=== PATIENT | male | born 1965 | race Caucasian/White ===

== ENCOUNTER 2017-07-30 23:56 | Inpatient (IN) | payer OTHER ==
[2017-07-30 23:56] VITALS: BMI 34.0
--- NOTE | 2017-07-31 00:20 | C.PDOC ---
History Of Present Illness Patient presents to the ER with a complaint of abdominal pain and nausea, associated with 2 episodes of blood tinged vomit. Patient admits to drinking ETOH today. Denies fever or chills. Time Seen by Provider: 07/31/17 00:20 Chief Complaint (Nursing): Abdominal Pain History Per: Patient History/Exam Limitations: no limitations Onset/Duration Of Symptoms: Hrs Current Symptoms Are (Timing): Still Present Context: Other (ETOH) Severity: Moderate Pain Scale Rating Of: 4 Location Of Pain/Discomfort: Epigastric Radiation Of Pain To:: None Quality Of Discomfort: Unable To Describe Associated Symptoms: Nausea, Vomiting (Blood tinged). denies: Fever, Chills Exacerbating Factors: None Alleviating Factors: None Recent travel outside of the [place]: No Additional History Per: Patient Past Medical History Reviewed: Historical Data, Nursing Documentation, Vital Signs Vital Signs: Last Vital Signs Temp 98.4 F 07/31/17 04:13 Pulse 122 H 07/31/17 05:11 Resp 24 07/31/17 05:11 BP 148/91 H 07/31/17 05:11 Pulse Ox 96 07/31/17 05:11 Surgical History: No Surg Hx Family History: States: No Known Family Hx - Social History Hx Alcohol Use: Yes Hx Substance Use: No - Immunization History Hx Tetanus Toxoid Vaccination: No Hx Influenza Vaccination: No Hx Pneumococcal Vaccination: No Review Of Systems Constitutional: Negative for: Fever, Chills ENT: Negative for: Throat Pain Cardiovascular: Negative for: Chest Pain, Palpitations Respiratory: Negative for: Cough, Shortness of Breath Gastrointestinal: Positive for: Nausea, Vomiting (Blood tinged), Abdominal Pain Genitourinary: Negative for: Dysuria Musculoskeletal: Negative for: Back Pain Skin: Negative for: Rash Neurological: Negative for: Weakness Psych: Negative for: Anxiety Physical Exam - Physical Exam Appears: Non-toxic Skin: Warm, Dry Head: Normacephalic Eye(s): bilateral: Normal Inspection Oral Mucosa: Moist Throat: No Erythema, No Exudate Neck: Trachea Midline, Supple Chest: Symmetrical, No Tenderness Cardiovascular: Rhythm Regular Respiratory: No Rales, No Rhonchi, No Wheezing Gastrointestinal/Abdominal: Soft, Tenderness (Mid epigastric), No Guarding, No Rebound Back: Normal Inspection Extremity: Normal ROM Extremity: Bilateral: Atraumatic Neurological/Psych: Oriented x3 Gait: Steady ED Course And Treatment - Laboratory Results Result Diagrams: 07/31/17 00:44 07/31/17 00:44 ECG: Interpreted By Me, Viewed By Me ECG Rhythm: Sinus Rhythm (100), Nonspecific Changes O2 Sat by Pulse Oximetry: 98 (Room air) Pulse Ox Interpretation: Normal Progress Note: Blood work, EKG, CXR, and urinalysis ordered. Protonix, zofran, and IV fluids administered. Disposition Discussed With Dr.: Enrique Calix Comment: accepted the pt on his service and took over the care at 5AM Counseled Patient/Family Regarding: Studies Performed, Diagnosis - Disposition Disposition: HOSPITALIZED Disposition Time: 00:20 Condition: FAIR Forms: [facility] (Bermudian) - POA Present On Arrival: Poor Glycemic Control - Clinical Impression Clinical Impression: Abdominal pain, Alcoholic gastritis, Vomiting, Nausea, Hematemesis - Scribe Statement The provider has reviewed the documentation as recorded by the Scribe Venkata Huffman All medical record entries made by the Scribe were at my direction and personally dictated by me. I have reviewed the chart and agree that the record accurately reflects my personal performance of the history, physical exam, medical decision making, and the department course for this patient. I have also personally directed, reviewed, and agree with the discharge instructions and disposition. Decision To Admit - Pt Status Changed To: Hospital Disposition Of: Observation - . Bed Request Type: Regular Admitting Physician: Enrique Calix Patient Diagnosis: Abdominal pain, Alcoholic gastritis, Vomiting, Nausea, Hematemesis
[2017-07-31] MEDS ORDERED: Sodium Chloride 0.9% 1,000 ML IV ONE ×2 (00:21→05:13)
[2017-07-31 00:49] LABS: BASO # 0.1 K/uL (0.0-0.2); EOS # 0.1 K/uL (0.0-0.7); EOS % 2.2 % (0.0-4.0); HEMOGLOBIN 16.2 g/dL (12.0-18.0); LYMPH # 2.6 K/uL (1.0-4.3); MEAN CELL VOLUME 83.7 fL (80.0-94.0); MEAN CORPUSCULAR HEMOGLOBIN 29.7 pg (27.0-31.0); MEAN CORPUSCULAR HGB CONC 35.5 g/dL (33.0-37.0); MONO # 0.6 K/uL (0.0-0.8); NEUT # 2.8 K/uL (1.8-7.0); NEUT % 45.8 % (50.0-75.0); NRBC % 0.3 % (0.0-2.0); RBC 5.46 Mil/uL (4.40-5.90); RED CELL DISTRIBUTION WIDTH 15.3 % (11.5-14.5); WHITE BLOOD COUNT 6.2 K/uL (4.8-10.8)
[2017-07-31 00:59] LABS: PROTHROMBIN TIME 10.9 SECONDS (9.7-12.2)
[2017-07-31 01:07] LABS: ALB/GLOB RATIO 1.5 (1.0-2.1); ALBUMIN 4.9 g/dL (3.5-5.0); ALT/SGPT 156 U/L (21-72); AST/SGOT 206 U/L (17-59); BLOOD UREA NITROGEN 10 mg/dL (9-20); CALCIUM 8.8 mg/dl (8.6-10.4); GFR AFRICAN-AMERICAN > 60; GFR NON-AFRICAN AMERICAN > 60; LIPASE 407 U/L (23-300)
[2017-07-31] MEDS ORDERED: Iodixanol 320 MG/ML 100 ML BOTTLE IV ONE (01:26)
[2017-07-31] MEDS ORDERED: Sodium Chloride 0.9% 1,000 ML ONE (05:06)
--- NOTE | 2017-07-31 05:51 | CP.PCM.HP ---
<Alpa Kelly - Last Filed: 07/31/17 06:47> History of Present Illness - History of Present Illness History of Present Illness: CC: "vomiting blood" HPI: 52 year old male with no past medical history presents to the ER after vomiting blood this morning. Patient states he started vomiting blood at 10am and 12pm Sunday and he was not able to come to the hospital earlier because he stated he did not have money. Patient states the blood was a small amount. He states he has also vomited 4x on Sunday but there was not any blood present. Patient states this is the first time this has happened. He states he has epigastric pain but he cannot describe the pain and denies radiation. Patient states the pain is currently an 8/10. Patient states he has fevers and chills. Patient also states he has vomited 2x since in the ER but states there was not blood present. Patient denies chest pain, shortness of breath, diarrhea, constipation or withdrawal secondary to alcohol withdrawal. Patient states he usually drinks about 2L of vodka and his last drink was on Sunday and states he drank 2 beers. 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 Patient is originally from [place]. Present on Admission - Present on Admission Any Indicators Present on Admission: No Review of Systems - Review of Systems Systems not reviewed;Unavailable: Intoxicated - Constitutional Constitutional: Chills, Fever. absent: Headache - EENT Eyes: absent: Blurred Vision - Cardiovascular Cardiovascular: absent: Chest Pain, Dyspnea - Respiratory Respiratory: absent: Dyspnea - Gastrointestinal Gastrointestinal: Abdominal Pain, Hematemesis, Nausea, Vomiting. absent: Constipation, Diarrhea - Genitourinary Genitourinary: absent: Dysuria - Neurological Neurological: absent: Dizziness, Headaches Past Patient History - Past Social History Smoking Status: Light Smoker < 10 Cigarettes Daily - PSYCHIATRIC Hx Substance Use: No - SURGICAL HISTORY Hx Surgeries: No - ANESTHESIA Hx Anesthesia: No Meds Allergies/Adverse Reactions: Allergies Allergy/AdvReac Type Severity Reaction Status Date / Time No Known Allergies Allergy Verified 07/31/17 00:11 Physical Exam - Constitutional Appears: Toxic - Head Exam Head Exam: ATRAUMATIC, NORMAL INSPECTION - Eye Exam Eye Exam: Conjunctival injection, EOMI, Normal appearance, PERRL Pupil Exam: NORMAL ACCOMODATION - ENT Exam ENT Exam: Mucous Membranes Dry - Respiratory Exam Respiratory Exam: Clear to Auscultation Bilateral, NORMAL BREATHING PATTERN - Cardiovascular Exam Cardiovascular Exam: Tachycardia, REGULAR RHYTHM, +S1, +S2. absent: JVD - GI/Abdominal Exam GI & Abdominal Exam: Normal Bowel Sounds, Soft, Tenderness (mild epigastric tenderness). absent: Distended, Firm, Guarding - Extremities Exam Extremities exam: Positive for: normal inspection, pedal pulses present. Negative for: pedal edema, tenderness - Neurological Exam Neurological exam: Alert, CN II-XII Intact, Oriented x3 - Expanded Neurological Exam Expanded Patient oriented to: person, place, time Cerebellar Function: Finger to Nose: Abnormal Left, Abnormal Right Coma Scale Eye Opening: SPONTANEOUS Coma Scale Motor Response: OBEYS COMMANDS - Psychiatric Exam Psychiatric exam: Normal Affect - Skin Skin Exam: Normal Color Additional comments: dirt underneath nail finger beds Results - Vital Signs Recent Vital Signs: Last Vital Signs Temp 98.4 F 07/31/17 04:13 Pulse 122 H 07/31/17 05:11 Resp 24 07/31/17 05:11 BP 148/91 H 07/31/17 05:11 Pulse Ox 98 07/31/17 05:18 - Labs Result Diagrams: 07/31/17 00:44 07/31/17 00:44 Labs: Laboratory Results - last 24 hr 07/31/17 07/31/17 07/31/17 00:44 00:44 00:44 WBC 6.2 D RBC 5.46 Hgb 16.2 Hct 45.7 MCV 83.7 MCH 29.7 MCHC 35.5 RDW 15.3 H Plt Count 152 D MPV 8.0 Neut % (Auto) 45.8 L Lymph % (Auto) 42.0 H Sac % (Auto) 9.0 Eos % (Auto) 2.2 Baso % (Auto) 1.0 Neut # (Auto) 2.8 Lymph # (Auto) 2.6 Sac # (Auto) 0.6 Eos # (Auto) 0.1 Baso # (Auto) 0.1 PT 10.9 INR 1.0 APTT 31 Sodium 140 Potassium 3.5 L Chloride 95 L Carbon Dioxide 27 Anion Gap 22 H BUN 10 Creatinine 0.8 Est GFR ( Amer) > 60 Est GFR (Non-Af Amer) > 60 Random Glucose 111 H Calcium 8.8 Total Bilirubin 1.0 AST 206 H ALT 156 H D Alkaline Phosphatase 113 Total Protein 8.2 Albumin 4.9 Globulin 3.3 Albumin/Globulin Ratio 1.5 Lipase 407 H Gastric Occult Blood Alcohol, Quantitative 265 H Blood Type Antibody Screen 07/31/17 07/31/17 00:57 05:15 WBC RBC Hgb Hct MCV MCH MCHC RDW Plt Count MPV Neut % (Auto) Lymph % (Auto) Sac % (Auto) Eos % (Auto) Baso % (Auto) Neut # (Auto) Lymph # (Auto) Sac # (Auto) Eos # (Auto) Baso # (Auto) PT INR APTT Sodium Potassium Chloride Carbon Dioxide Anion Gap BUN Creatinine Est GFR ( Amer) Est GFR (Non-Af Amer) Random Glucose Calcium Total Bilirubin AST ALT Alkaline Phosphatase Total Protein Albumin Globulin Albumin/Globulin Ratio Lipase Gastric Occult Blood Negative Alcohol, Quantitative Blood Type O POSITIVE Antibody Screen Negative Assessment & Plan - Assessment and Plan (Free Text) Assessment: Hematamesis - secondary to gastritis secondary to alcohol abuse - CT abd/pelvis: Liver there is diffuse decrease in hepatic parenchymal density , consistent with fatty infiltration; no acute findings. - Protonix 40mg IV q12h - NPO - stool occult blood negative - GI Consult: Dr. Potts --> help appreciated Alcohol Abuse - [facility] protocol - Ativan 2mg q6 linnea - Ativan 1mg q2prn - LR with multivitamin/Folate/Thiamine @120cc/hr - Alcohol Serum 265 - f/u UDS Elevated Liver Enzymes - secondary to alcohol abuse - Continue to monitor Prophylaxis - SCDs - Protonix 40mg q12h - NPO - VTE contraindication Case discussed with Dr. Fifi Kelly PGY-2 <Enrique Calix P - Last Filed: 07/31/17 07:08> Results - Vital Signs Recent Vital Signs: Last Vital Signs Temp 97.5 F L 07/31/17 06:25 Pulse 95 H 07/31/17 06:25 Resp 20 07/31/17 06:25 BP 158/91 H 07/31/17 06:25 Pulse Ox 97 07/31/17 06:25 - Labs Result Diagrams: 07/31/17 00:44 07/31/17 00:44 Labs: Laboratory Results - last 24 hr 07/31/17 07/31/17 07/31/17 00:44 00:44 00:44 WBC 6.2 D RBC 5.46 Hgb 16.2 Hct 45.7 MCV 83.7 MCH 29.7 MCHC 35.5 RDW 15.3 H Plt Count 152 D MPV 8.0 Neut % (Auto) 45.8 L Lymph % (Auto) 42.0 H Sac % (Auto) 9.0 Eos % (Auto) 2.2 Baso % (Auto) 1.0 Neut # (Auto) 2.8 Lymph # (Auto) 2.6 Sac # (Auto) 0.6 Eos # (Auto) 0.1 Baso # (Auto) 0.1 PT 10.9 INR 1.0 APTT 31 Sodium 140 Potassium 3.5 L Chloride 95 L Carbon Dioxide 27 Anion Gap 22 H BUN 10 Creatinine 0.8 Est GFR ( Amer) > 60 Est GFR (Non-Af Amer) > 60 Random Glucose 111 H Calcium 8.8 Total Bilirubin 1.0 AST 206 H ALT 156 H D Alkaline Phosphatase 113 Total Protein 8.2 Albumin 4.9 Globulin 3.3 Albumin/Globulin Ratio 1.5 Lipase 407 H Gastric Occult Blood Alcohol, Quantitative 265 H Blood Type Antibody Screen 07/31/17 07/31/17 00:57 05:15 WBC RBC Hgb Hct MCV MCH MCHC RDW Plt Count MPV Neut % (Auto) Lymph % (Auto) Sac % (Auto) Eos % (Auto) Baso % (Auto) Neut # (Auto) Lymph # (Auto) Sac # (Auto) Eos # (Auto) Baso # (Auto) PT INR APTT Sodium Potassium Chloride Carbon Dioxide Anion Gap BUN Creatinine Est GFR ( Amer) Est GFR (Non-Af Amer) Random Glucose Calcium Total Bilirubin AST ALT Alkaline Phosphatase Total Protein Albumin Globulin Albumin/Globulin Ratio Lipase Gastric Occult Blood Negative Alcohol, Quantitative Blood Type O POSITIVE Antibody Screen Negative Attending/Attestation - Attestation I have personally seen and examined this patient.: Yes I have fully participated in the care of the patient.: Yes I have reviewed all pertinent clinical information: Yes Notes (Text): 07/31/17 06:57 Alcoholic gastritis, hepatitis, ? early pancreatitis, possible resolving, secondary retching and streaks of blood in the vomit. Alcoholism and high risk of withdrawal. Plan NPO IVF MVT, FA, thiamine Scheduled and prn iv ativan Hepatitis panel Counselled about alcohol and smoking cessation. See orders for detail.
[2017-07-31] MEDS ORDERED: MULTIVITAMIN IV SCH (06:15)
[2017-07-31] MEDS ORDERED: FOLIC ACID IV SCH (06:15)
[2017-07-31] MEDS ORDERED: LACTATED RINGER S IV SCH (06:15)
[2017-07-31] MEDS ORDERED: THIAMINE IV SCH (06:15)
--- NOTE | 2017-07-31 09:33 | CP.PCM.PN ---
<Chani Patrick V - Last Filed: 07/31/17 13:44> Objective - Vital Signs/Intake and Output Vital Signs (last 24 hours): Temp Pulse Resp BP Pulse Ox 98.1 F 92 H 20 156/97 H 98 07/31/17 07:05 07/31/17 07:05 07/31/17 07:05 07/31/17 07:05 07/31/17 07:05 - Medications Medications: Current Medications Gabapentin (Neurontin) 300 mg PO BID [facility] Last Admin: 07/31/17 12:30 Dose: 300 mg Multivitamins/Vitamin C 10 ml/Thiamine HCl 100 mg/ Folic Acid 1 mg/ Lactated Ringer's 1,011.2 mls @ 120 mls/hr IV .Q8H26M [facility] Last Admin: 07/31/17 06:39 Dose: 120 mls/hr Lorazepam (Ativan) 1 mg IVP Q4H PRN PRN Reason: Symptoms of alcohol withdrawl Lorazepam (Ativan) 1 mg IVP Q6H [facility] PRN Reason: Taper Stop: 08/04/17 11:59 Last Admin: 07/31/17 12:30 Dose: 1 mg Ondansetron HCl (Zofran Inj) 4 mg IVP Q6 PRN PRN Reason: Nausea/Vomiting Last Admin: 07/31/17 12:30 Dose: 4 mg Pantoprazole Sodium (Protonix Inj) 40 mg IVP Q12H [facility] Last Admin: 07/31/17 06:38 Dose: 40 mg Pneumococcal Polyvalent Vaccine (Pneumovax 23 Vaccine) 0.5 ml IM .ONCE ONE Stop: 08/03/17 14:01 Trazodone HCl (Desyrel) 100 mg PO [facility] - Labs Labs: 07/31/17 10:48 07/31/17 10:48 PT 10.9 SECONDS (9.7-12.2) 07/31/17 00:44 INR 1.0 07/31/17 00:44 APTT 31 SECONDS (21-34) 07/31/17 00:44 Attending/Attestation - Attestation I have personally seen and examined this patient.: Yes I have fully participated in the care of the patient.: Yes I have reviewed all pertinent clinical information, including history, physical exam and plan: Yes Notes (Text): Patient seen, examined and case discussed with day-time resident. Patient reports he drinks 2 large vodkas a day. Last drink yesterday. Patient reports visual hallucinations. Patient reports sometimes he throws up blood and reports his bowel movements are yellow. He reports has month they were dark last month. patient denies history of liver cirrhosis though I suspected he does have alcoholic liver disease. I spoke with GI, no plans for intervention at this time. Recommends to repeat CBC and when patient more alert then advance to clear diet. Assessment/Plan 1) Alcohol Abuse Alcohol Withdrawal Assessment/Plan * Psychiatry (Dr. Martinez) on board-->help appreciated * [facility] protocol * Ativan 2mg IVP q6 linnea * Ativan 1mg q2prn * LR 125cc/hr with banana bag supplemented * Alcohol Serum 265 * Neurotonin 300mg PO BID * Trazodone 100mg PO HS 2) Transaminitis Assessment/Plan * GI (Dr. Potts) on board-->help appreciated * Mild blood tinged emesis likely due to recurrent wretching and bilious vomiting, gastritis, MWT, doubt bleeding ulcer or portal hypertension. Bleeding appears to be self limited and has stopped. IV Protonix q12h. * Monitor CBC. * Will defer EGD at this time in absence of hemodynamically significant bleeding or drop in H/H. Observe. * Abdominal US ordered * CT abdomen/pelvis IV only (07/31/17): no acute findings related to/accounting for clinical presentation; Liver: hepatic steatosis. No focal masses. No intrahepatic bile duct dilatation or perihepatic ascites * Hepatitis panel: negative * Downtrending * Ativan 2mg IVP q6 linnea * Ativan 1mg q2prn 3) Hypokalemia Assessment/Plan * Replete 4) Suspect GI Bleed Assessment/Plan * protonix 40mg IV Q12H * Monitor H/H * No plans for GI intervention at this time 5) Prophylaxis * SCDs * Protonix 40mg q12h * NPO * VTE contraindication suspected GI bleed <Dewey Sparrow - Last Filed: 07/31/17 17:34> Subjective - Date & Time of Evaluation Date of Evaluation: 07/31/17 Time of Evaluation: 09:18 - Subjective Subjective: PGY-[address] Patrick. No acute events noted overnight. Patient stated he felt somewhat better. Was seen comfortable watching the [id number] match on tv. Stated he was seeing halos around lights. Denied chest pain, fevers, chills, vomiting. Admitted to mild abdominal pain, right sided. Objective - Vital Signs/Intake and Output Vital Signs (last 24 hours): Temp Pulse Resp BP Pulse Ox 98.1 F 92 H 20 156/97 H 98 07/31/17 07:05 07/31/17 07:05 07/31/17 07:05 07/31/17 07:05 07/31/17 07:05 - Medications Medications: Current Medications Multivitamins/Vitamin C 10 ml/Thiamine HCl 100 mg/ Folic Acid 1 mg/ Lactated Ringer's 1,011.2 mls @ 120 mls/hr IV .Q8H26M [facility] Last Admin: 07/31/17 06:39 Dose: 120 mls/hr Lorazepam (Ativan) 2 mg IVP Q6H [facility] Last Admin: 07/31/17 06:39 Dose: 2 mg Lorazepam (Ativan) 1 mg IVP Q2H PRN PRN Reason: Symptoms of alcohol withdrawl Ondansetron HCl (Zofran Inj) 4 mg IVP Q6 PRN PRN Reason: Nausea/Vomiting Last Admin: 07/31/17 06:38 Dose: 4 mg Pantoprazole Sodium (Protonix Inj) 40 mg IVP Q12H [facility] Last Admin: 07/31/17 06:38 Dose: 40 mg Pneumococcal Polyvalent Vaccine (Pneumovax 23 Vaccine) 0.5 ml IM .ONCE ONE Stop: 08/03/17 14:01 - Labs Labs: 07/31/17 00:44 07/31/17 00:44 PT 10.9 SECONDS (9.7-12.2) 07/31/17 00:44 INR 1.0 07/31/17 00:44 APTT 31 SECONDS (21-34) 07/31/17 00:44 - Additional Findings Additional findings: - Constitutional Appears: Toxic - Head Exam Head Exam: ATRAUMATIC, NORMAL INSPECTION - Eye Exam Eye Exam: Conjunctival injection, EOMI, Normal appearance, PERRL Pupil Exam: NORMAL ACCOMODATION - ENT Exam ENT Exam: Mucous Membranes Dry - Respiratory Exam Respiratory Exam: Clear to Auscultation Bilateral, NORMAL BREATHING PATTERN - Cardiovascular Exam Cardiovascular Exam: Tachycardia, REGULAR RHYTHM, +S1, +S2. absent: JVD - GI/Abdominal Exam GI & Abdominal Exam: Normal Bowel Sounds, Soft, Tenderness (mild epigastric tenderness). absent: Distended, Firm, Guarding - Extremities Exam Extremities exam: Positive for: normal inspection, pedal pulses present. Negative for: pedal edema, tenderness - Neurological Exam Neurological exam: Alert, CN II-XII Intact, Oriented x3 - Expanded Neurological Exam Expanded Patient oriented to: person, place, time Cerebellar Function: Finger to Nose: Abnormal Left, Abnormal Right Coma Scale Eye Opening: SPONTANEOUS Coma Scale Motor Response: OBEYS COMMANDS - Psychiatric Exam Psychiatric exam: Normal Affect - Skin Skin Exam: Normal Color Additional comments: dirt underneath nail finger beds Assessment and Plan - Assessment and Plan (Free Text) Assessment: 1) Alcohol Abuse Alcohol Withdrawal Assessment/Plan * Psychiatry (Dr. Martinez) on board-->help appreciated * [facility] protocol * Ativan 2mg IVP q6 linnea * Ativan 1mg q2prn * LR 125cc/hr with banana bag supplemented * Alcohol Serum 265 * Neurotonin 300mg PO BID * Trazodone 100mg PO HS 2) Transaminitis Assessment/Plan * GI (Dr. Potts) on board-->help appreciated * Mild blood tinged emesis likely due to recurrent wretching and bilious vomiting, gastritis, MWT, doubt bleeding ulcer or portal hypertension. Bleeding appears to be self limited and has stopped. IV Protonix q12h. * Monitor CBC. * Will defer EGD at this time in absence of hemodynamically significant bleeding or drop in H/H. Observe. * Abdominal US ordered * CT abdomen/pelvis IV only (07/31/17): no acute findings related to/accounting for clinical presentation; Liver: hepatic steatosis. No focal masses. No intrahepatic bile duct dilatation or perihepatic ascites * Hepatitis panel: negative * Downtrending * Ativan 2mg IVP q6 linnea * Ativan 1mg q2prn 3) Hypokalemia Assessment/Plan * Replete 4) Suspect GI Bleed Assessment/Plan * protonix 40mg IV Q12H * Monitor H/H * No plans for GI intervention at this time 5) Prophylaxis * SCDs * Protonix 40mg q12h * NPO * VTE contraindication suspected GI bleed Case discussed with Dr. Celina Sparrow PGY-2
--- NOTE | 2017-07-31 09:40 | CP.PCM.CON ---
History of Present Illness - History of Present Illness History of Present Illness: 54 yo [place] male admitted with alcohol intoxication (EtoH level >200), epigastric pain and intractable vomiting on day of admission. Patient reports the emesis was blood tinged as well. Admits to 2 liters of vodka ingestion daily for the past 20 years. No prior medical history. Never told he has liver disease, IVDA, hepatitis of other problems. No melena. Asked to see for hematemesis. Hgb=16. Review of Systems - Review of Systems Systems not reviewed;Unavailable: Intoxicated, Language Barrier Past Patient History - Past Social History Smoking Status: Light Smoker < 10 Cigarettes Daily Alcohol: > 2 Drinks/Day Drugs: Denies Home Situation {Lives}: With Family - CARDIAC Hx Cardiac Disorders: No - PULMONARY Hx Respiratory Disorders: No - NEUROLOGICAL Hx Neurological Disorder: No - RENAL Hx Chronic Kidney Disease: No - ENDOCRINE/METABOLIC Hx Endocrine Disorders: No - HEMATOLOGICAL/ONCOLOGICAL Hx Blood Disorders: No - MUSCULOSKELETAL/RHEUMATOLOGICAL Hx Musculoskeletal Disorders: No - GASTROINTESTINAL Hx Gastrointestinal Disorders: No Hx Bowel Surgery: No Hx Clostridium Difficile: No Hx Colitis: No Hx Colostomy: No Hx Constipation: No Hx Crohn's Disease: No Hx Diarrhea: No Hx Diverticulitis: No Hx Esophageal Varices: No Hx Fatty Liver Disease: No Hx Gall Bladder Disease: No Hx Gastritis: No Hx Gastroesophageal Reflux: No Hx Hemorrhoids: No Hx Ileostomy: No Hx Irritable Bowel: No Hx Liver Failure: No Hx Nausea: No Hx Pancreatitis: No HX Swallowing Problems: No Hx Ulcer: No Hx Vomiting: Yes - PSYCHIATRIC Hx Substance Use: Yes (alcohol abuse) - SURGICAL HISTORY Hx Surgeries: No - ANESTHESIA Hx Anesthesia: No Meds Allergies/Adverse Reactions: Allergies Allergy/AdvReac Type Severity Reaction Status Date / Time No Known Allergies Allergy Verified 07/31/17 00:11 - Medications Medications: Current Medications Multivitamins/Vitamin C 10 ml/Thiamine HCl 100 mg/ Folic Acid 1 mg/ Lactated Ringer's 1,011.2 mls @ 120 mls/hr IV .Q8H26M [facility] Last Admin: 07/31/17 06:39 Dose: 120 mls/hr Lorazepam (Ativan) 2 mg IVP Q6H [facility] Last Admin: 07/31/17 06:39 Dose: 2 mg Lorazepam (Ativan) 1 mg IVP Q2H PRN PRN Reason: Symptoms of alcohol withdrawl Ondansetron HCl (Zofran Inj) 4 mg IVP Q6 PRN PRN Reason: Nausea/Vomiting Last Admin: 07/31/17 06:38 Dose: 4 mg Pantoprazole Sodium (Protonix Inj) 40 mg IVP Q12H [facility] Last Admin: 07/31/17 06:38 Dose: 40 mg Pneumococcal Polyvalent Vaccine (Pneumovax 23 Vaccine) 0.5 ml IM .ONCE ONE Stop: 08/03/17 14:01 Physical Exam - Constitutional Appears: No Acute Distress, Confused - Head Exam Head Exam: ATRAUMATIC, NORMOCEPHALIC - Eye Exam Eye Exam: EOMI, PERRL. absent: Scleral icterus - Respiratory Exam Respiratory Exam: NORMAL BREATHING PATTERN - Cardiovascular Exam Cardiovascular Exam: REGULAR RHYTHM - GI/Abdominal Exam GI & Abdominal Exam: Normal Bowel Sounds, Organomegaly, Soft. absent: Tenderness - Rectal Exam Rectal Exam: Deferred - Extremities Exam Extremities exam: Positive for: normal inspection - Neurological Exam Neurological exam: Alert Results - Vital Signs Recent Vital Signs: Last Vital Signs Temp 98.1 F 07/31/17 07:05 Pulse 92 H 07/31/17 07:05 Resp 20 07/31/17 07:05 BP 156/97 H 07/31/17 07:05 Pulse Ox 98 07/31/17 07:05 - Labs Result Diagrams: 07/31/17 00:44 07/31/17 00:44 Labs: Laboratory Results - last 24 hr 07/31/17 07/31/17 07/31/17 00:44 00:44 00:44 WBC 6.2 D RBC 5.46 Hgb 16.2 Hct 45.7 MCV 83.7 MCH 29.7 MCHC 35.5 RDW 15.3 H Plt Count 152 D MPV 8.0 Neut % (Auto) 45.8 L Lymph % (Auto) 42.0 H Monona % (Auto) 9.0 Eos % (Auto) 2.2 Baso % (Auto) 1.0 Neut # (Auto) 2.8 Lymph # (Auto) 2.6 Monona # (Auto) 0.6 Eos # (Auto) 0.1 Baso # (Auto) 0.1 PT 10.9 INR 1.0 APTT 31 Sodium 140 Potassium 3.5 L Chloride 95 L Carbon Dioxide 27 Anion Gap 22 H BUN 10 Creatinine 0.8 Est GFR ( Amer) > 60 Est GFR (Non-Af Amer) > 60 Random Glucose 111 H Calcium 8.8 Total Bilirubin 1.0 AST 206 H ALT 156 H D Alkaline Phosphatase 113 Total Protein 8.2 Albumin 4.9 Globulin 3.3 Albumin/Globulin Ratio 1.5 Lipase 407 H Gastric Occult Blood Alcohol, Quantitative 265 H Blood Type Antibody Screen 07/31/17 07/31/17 00:57 05:15 WBC RBC Hgb Hct MCV MCH MCHC RDW Plt Count MPV Neut % (Auto) Lymph % (Auto) Monona % (Auto) Eos % (Auto) Baso % (Auto) Neut # (Auto) Lymph # (Auto) Monona # (Auto) Eos # (Auto) Baso # (Auto) PT INR APTT Sodium Potassium Chloride Carbon Dioxide Anion Gap BUN Creatinine Est GFR ( Amer) Est GFR (Non-Af Amer) Random Glucose Calcium Total Bilirubin AST ALT Alkaline Phosphatase Total Protein Albumin Globulin Albumin/Globulin Ratio Lipase Gastric Occult Blood Negative Alcohol, Quantitative Blood Type O POSITIVE Antibody Screen Negative Assessment & Plan (1) Alcohol abuse Assessment and Plan: Needs psychiatric evaluation and detox protocol. Monitor for DT's. Status: Acute (2) Alcoholic fatty liver Assessment and Plan: Likely due to alcohol abuse fci. Status: Acute (3) Hematemesis Assessment and Plan: Mild blood tinged emesis likely due to recurrent wretching and bilious vomiting , gastritis, MWT, doubt bleeding ulcer or portal hypertension. Bleeding appears to be self limited and has stopped. IV Protonix q12h. Monitor CBC. Will defer EGD at this time in absence of hemodynamically significant bleeding or drop in H/H. Observe. Status: Acute (4) Abnormal transaminases Assessment and Plan: likely due to alcoholic fatty liver/alcoholic hepatitis. r/o underlying viral disease of other causes of CLD. Serologies ordered. Status: Acute
--- NOTE | 2017-07-31 10:55 | CT ---
PROCEDURE: CT Abdomen and Pelvis with contrast HISTORY: Hematemesis. COMPARISON: None. TECHNIQUE: Contrast dose: Visipaque 321 100 mL Radiation dose: Total exam DLP = 589.98 mGy-cm. This CT exam was performed using one or more of the following dose reduction techniques: Automated exposure control, adjustment of the mA and/or kV according to patient size, and/or use of iterative reconstruction technique. FINDINGS: LOWER THORAX: Unremarkable. LIVER: Hepatic steatosis. No focal masses. No intrahepatic bile duct dilatation or perihepatic ascites. GALLBLADDER AND BILE DUCTS: Unremarkable. PANCREAS: Unremarkable. No gross lesion or ductal dilatation. SPLEEN: Unremarkable. ADRENALS: Unremarkable. No mass. KIDNEYS AND URETERS: Bilateral nonobstructing renal calculi common non larger than 5 mm. VASCULATURE: Unremarkable. No aortic aneurysm. BOWEL: Unremarkable. No obstruction. No gross mural thickening. APPENDIX: Normal appendix. PERITONEUM: Unremarkable. No free fluid. No free air. LYMPH NODES: Unremarkable. No enlarged lymph nodes. BLADDER: Unremarkable. REPRODUCTIVE: Unremarkable. BONES: No acute fracture. OTHER FINDINGS: None. IMPRESSION: No acute findings related to/accounting for the clinical presentation. Additional benign and/or incidental findings described above. Concordant results (preliminary interpretation) provided by [employer]. Procedure Completed: 03:10 Preliminary ([facility]Rad) Report: Dictated and Authenticated: 04:31. Final Interpretation: 10:59
--- NOTE | 2017-07-31 10:56 | RAD ---
PROCEDURE: CHEST RADIOGRAPH, 1 VIEW HISTORY: Abdominal pain. Vomiting. COMPARISON: None available. FINDINGS: LUNGS: Clear. PLEURA: No pneumothorax or pleural fluid seen. CARDIOVASCULAR: No radiographic findings to suggest acute or significant cardiovascular disease. OSSEOUS STRUCTURES: No significant abnormalities. VISUALIZED UPPER ABDOMEN: Normal. OTHER FINDINGS: None. IMPRESSION: No active disease.
[2017-07-31 10:57] LABS: BASO % 0.6 % (0.0-2.0); EOS # 0.2 K/uL (0.0-0.7); EOS % 3.5 % (0.0-4.0); HEMOGLOBIN 15.2 g/dL (12.0-18.0); LYMPH % 31.2 % (20.0-40.0); MEAN CELL VOLUME 85.6 fL (80.0-94.0); MEAN CORPUSCULAR HEMOGLOBIN 29.5 pg (27.0-31.0); MEAN CORPUSCULAR HGB CONC 34.5 g/dL (33.0-37.0); MEAN PLATELET VOLUME 8.5 fL (7.2-11.7); MONO # 0.4 K/uL (0.0-0.8); MONO % 6.8 % (0.0-10.0); NEUT # 3.7 K/uL (1.8-7.0); NEUT % 57.9 % (50.0-75.0); NRBC % 0.1 % (0.0-2.0); RBC 5.15 Mil/uL (4.40-5.90); RED CELL DISTRIBUTION WIDTH 15.2 % (11.5-14.5); WHITE BLOOD COUNT 6.4 K/uL (4.8-10.8)
[2017-07-31 11:10] LABS: IRON 173 ug/dL (49-181)
[2017-07-31 11:17] LABS: ALB/GLOB RATIO 1.6 (1.0-2.1); ALBUMIN 4.7 g/dL (3.5-5.0); ALT/SGPT 147 U/L (21-72); AST/SGOT 191 U/L (17-59); BLOOD UREA NITROGEN 7 mg/dL (9-20); CALCIUM 8.5 mg/dl (8.6-10.4); GFR AFRICAN-AMERICAN > 60; GFR NON-AFRICAN AMERICAN > 60
[2017-07-31 11:20] LABS: % IRON SATURATION 52 (20-55); TOTAL IRON BINDING CAPACITY 332 ug/dL (250-450)
[2017-07-31 11:43] LABS: HEPATITIS B SURFACE AG Negative (NEGATIVE)
[2017-07-31 11:49] LABS: HEPATITIS A IGM NEGATIVE (NEGATIVE); HEPATITIS B CORE AB NEGATIVE (NEGATIVE)
--- NOTE | 2017-07-31 11:54 | PCM.PSYCH ---
Initial Psychiatric Evaluation - Initial Psychiatric Evaluation Type of Admission: Voluntary Legal Status: Capacity Chief Complaint (in patient's own words): "Alcohol" History of Present Illness and Precipitating Events: The patient is seen, chart reviewed and case discussed. Consultation was requested for his alcohol use. All my transition used for the interview. 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 He admits to having the 7 day binge for about 1 L of alcohol every day. However , he has a history of alcohol abuse for 30 years. Interestingly enough, he has never been to detox or rehabilitation in the past. He has withdrawal symptoms currently. No psych or other drug use history. Past psych history: Denies Medical history: He is admitted with GI bleed. Family psych history: Brother was also an alcoholic he states he Current Medications: Active Medications Generic Name Dose Route Start Last Admin Trade Name Freq PRN Reason Stop Dose Admin Multivitamins/Vitamin C 10 ml/ 1,011.2 mls @ 120 mls/hr 07/31/17 06:15 06:39 Thiamine HCl 100 mg/ Folic IV 120 mls/hr Acid 1 mg/ Lactated Ringer's .Q8H26M JORGE Administration Lorazepam 2 mg 07/31/17 06:30 07/31/17 06:39 Ativan IVP 2 mg Q6H JORGE Administration Lorazepam 1 mg 07/31/17 06:24 Ativan IVP Q2H PRN Symptoms of alcohol withdrawl Ondansetron HCl 4 mg 07/31/17 05:40 07/31/17 06:38 Zofran Inj IVP 4 mg Q6 PRN Administration Nausea/Vomiting Pantoprazole Sodium 40 mg 07/31/17 05:45 07/31/17 06:38 Protonix Inj IVP 40 mg Q12H JORGE Administration Pneumococcal Polyvalent Vaccine 0.5 ml 08/03/17 14:00 Pneumovax 23 Vaccine IM 08/03/17 14:01 .ONCE ONE Past Psychiatric History - Past Psychiatric History Previous Treatment History: None Pertinent Medical Hx (Current Medical&Sleep Prob, Allergies): Allergies Allergy/AdvReac Type Severity Reaction Status Date / Time No Known Allergies Allergy Verified 07/31/17 00:11 No Known Home Med 07/31/17 Review of Systems - Psychiatric Psychiatric: Abnormal Sleep Pattern, Anxiety. absent: Hallucinations, Homicidal Ideation, Hopelessness, Paranoia, Suicidal Ideation Mental Status Examination - Personal Presentation Personal Presentation: Looks stated age - Affect Affect: Constricted - Motor Activity Motor Activity: Calm - Reliability in Providing Information Reliability in Providing Information: Good - Speech Speech: Organized - Mood Mood: Anxious - Formal Thought Process Formal Thought Process: No Impairment - Cognitive Functions Orientation: Person, Place, Situation, Time Sensorium: Alert Attention/Concentration: Easily distracted Estimate of Intelligence: Average Judgement: Intact, as evidence by: Insight regarding need for hospitalization Memory: Recent intact, as evidence by: Ability to recall events of the day, Remote intact, as evidenced by: Abilit to recall sig. life events - Risk Risk: Withdrawal, Diminished functioning - Strength & Assets Inventory Strength & Assets Inventory: Cooperative - Limitations Limitations: Other DSM 5 DX - DSM 5 DSM 5 Diagnosis: Alcohol withdrawal Alcohol use disorder, severe - Recommended/Plan of Treatment Treatment Recommendations and Plan of Treatment: Taper with Ativan Trazodone for insomnia Gabapentin for augmentation if needed As needed medications All risks, benefits and alternatives of the meds discussed, and the pt agreed and understood. Supportive therapy and psychoeducation [place] for abstinence Encourage MAT Refer to rehab or IOP, and self-help groups Smoking cessation with [place] Nicotine patch if needed 34 min
[2017-07-31 12:00] LABS: HEPATITIS C ANTIBODY NEGATIVE (NEGATIVE)
--- NOTE | 2017-07-31 16:04 | US ---
HISTORY: check liver for cirrhosis COMPARISON: None. TECHNIQUE: Sonographic evaluation of the abdomen. FINDINGS: LIVER: Measures 17.2 cm. Increased echogenicity of the liver parenchyma. No mass. No intrahepatic bile duct dilatation. GALLBLADDER: Distended but otherwise unremarkable appearing gallbladder. No reported sonographic Hugo sign by technologist. No cholelithiasis or mural thickening. No pericholecystic fluid collection evident. COMMON BILE DUCT: Measures 2.0 mm. No stones. No dilatation. PANCREAS: Unremarkable as visualized. No mass. No ductal dilatation. RIGHT KIDNEY: Measures 12.6cm. No obstructive uropathy is appreciated however of prominent area perisinus fat is questioned versus potential 6 mm calculus with no shadowing at the midpole region. The former is favored over the latter. Corticomedullary differentiation is poor which could be a function of body habitus. No perinephric fluid collection or cystic or solid parenchymal mass appreciable. LEFT KIDNEY: Measures 12.0cm. No obstructive uropathy, urolithiasis or cyst or solid parenchymal mass. No perinephric fluid collection. Corticomedullary differentiation is poor. SPLEEN: Normal in size and contour. No mass. AORTA: No aneurysmal dilatation. IVC: Unremarkable. OTHER FINDINGS: None. IMPRESSION: 1. Hepatic steatosis. 2. Distended but otherwise unremarkable appearing gallbladder as discussed above. 3. Nonspecific loss of corticomedullary differentiation could be a function of body habitus though intrinsic medical renal disease is not excluded.
[2017-08-01] MEDS ORDERED: MULTIVITAMIN IV SCH (06:30)
[2017-08-01] MEDS ORDERED: FOLIC ACID IV SCH (06:30)
[2017-08-01] MEDS ORDERED: LACTATED RINGER S IV SCH (06:30)
[2017-08-01] MEDS ORDERED: THIAMINE IV SCH (06:30)
[2017-08-01 06:45] LABS: ALB/GLOB RATIO 1.5 (1.0-2.1); ALBUMIN 4.3 g/dL (3.5-5.0); ALT/SGPT 121 U/L (21-72); AST/SGOT 123 U/L (17-59); BILIRUBIN,DIRECT 0.5 mg/dL (0.0-0.4); BLOOD UREA NITROGEN 11 mg/dL (9-20); GFR AFRICAN-AMERICAN > 60; GFR NON-AFRICAN AMERICAN > 60
[2017-08-01 06:49] LABS: BASO % 0.3 % (0.0-2.0); EOS # 0.6 K/uL (0.0-0.7); EOS % 7.9 % (0.0-4.0); HEMOGLOBIN 15.2 g/dL (12.0-18.0); LYMPH # 1.2 K/uL (1.0-4.3); LYMPH % 16.5 % (20.0-40.0); MEAN CELL VOLUME 85.1 fL (80.0-94.0); MEAN CORPUSCULAR HEMOGLOBIN 29.3 pg (27.0-31.0); MEAN CORPUSCULAR HGB CONC 34.5 g/dL (33.0-37.0); MEAN PLATELET VOLUME 8.6 fL (7.2-11.7); MONO # 0.6 K/uL (0.0-0.8); MONO % 7.6 % (0.0-10.0); NEUT % 67.7 % (50.0-75.0); NRBC % 0.1 % (0.0-2.0); RBC 5.17 Mil/uL (4.40-5.90); WHITE BLOOD COUNT 7.4 K/uL (4.8-10.8)
[2017-08-01] MEDS: Multiple Vitamins Tab PO SCH (09:25)
[2017-08-01 10:21] LABS: CERULOPLASMIN 21 mg/dL (18-36)
--- NOTE | 2017-08-01 10:22 | CP.PCM.PN ---
Subjective - Date & Time of Evaluation Date of Evaluation: 08/01/17 Time of Evaluation: 10:20 - Subjective Subjective: No bleeding N/V H/H-stable Viral hepatitis markers negative Psych evaluation in progress Objective - Vital Signs/Intake and Output Vital Signs (last 24 hours): Temp Pulse Resp BP Pulse Ox 98.4 F 73 20 139/94 H 96 08/01/17 07:00 08/01/17 09:24 08/01/17 07:00 08/01/17 09:24 08/01/17 07:00 - Medications Medications: Current Medications Folic Acid (Folic Acid) 1 mg PO DAILY [facility] Last Admin: 08/01/17 09:25 Dose: 1 mg Gabapentin (Neurontin) 300 mg PO BID [facility] Last Admin: 08/01/17 09:12 Dose: 300 mg Potassium Chloride (Potassium Chloride 20 Meq/100 Ml) 20 meq in 100 mls @ 50 mls/hr IVPB ONCE ONE Stop: 08/01/17 10:52 Last Admin: 08/01/17 09:13 Dose: 50 mls/hr Potassium Chloride (Potassium Chloride 20 Meq/100 Ml) 20 meq in 100 mls @ 50 mls/hr IVPB ONCE ONE Stop: 08/01/17 13:44 Lorazepam (Ativan) 1 mg IVP Q4H PRN PRN Reason: Symptoms of alcohol withdrawl Lorazepam (Ativan) 1 mg IVP Q6H JORGE PRN Reason: Taper Stop: 08/04/17 11:59 Last Admin: 08/01/17 05:43 Dose: 1 mg Metoprolol Tartrate (Lopressor) 25 mg PO BIDBS [facility] Last Admin: 08/01/17 09:24 Dose: 25 mg Multivitamins (Hexavitamin) 1 tab PO DAILY [facility] Last Admin: 08/01/17 09:25 Dose: 1 tab Ondansetron HCl (Zofran Inj) 4 mg IVP Q6 PRN PRN Reason: Nausea/Vomiting Last Admin: 07/31/17 12:30 Dose: 4 mg Pantoprazole Sodium (Protonix Inj) 40 mg IVP Q12H [facility] Last Admin: 08/01/17 05:43 Dose: 40 mg Pneumococcal Polyvalent Vaccine (Pneumovax 23 Vaccine) 0.5 ml IM .ONCE ONE Stop: 08/03/17 14:01 Trazodone HCl (Desyrel) 100 mg PO HS [facility] Last Admin: 07/31/17 21:15 Dose: 100 mg - Labs Labs: 08/01/17 06:21 08/01/17 06:21 PT 10.9 SECONDS (9.7-12.2) 07/31/17 00:44 INR 1.0 07/31/17 00:44 APTT 31 SECONDS (21-34) 07/31/17 00:44 - Constitutional Appears: No Acute Distress - Head Exam Head Exam: ATRAUMATIC, NORMOCEPHALIC - Eye Exam Eye Exam: EOMI, PERRL. absent: Scleral icterus - Respiratory Exam Respiratory Exam: Clear to Ausculation Bilateral, NORMAL BREATHING PATTERN - Cardiovascular Exam Cardiovascular Exam: REGULAR RHYTHM - GI/Abdominal Exam GI & Abdominal Exam: Soft, Normal Bowel Sounds, Organomegaly. absent: Tenderness - Extremities Exam Extremities Exam: Normal Inspection Assessment and Plan (1) Alcohol abuse Assessment & Plan: As per psych evaluation DT precautions Abstinence for short and fpc survival Status: Acute (2) Alcoholic fatty liver Status: Acute (3) Hematemesis Assessment & Plan: Self limited with no change in H/H Continue Protonix po for two weeks and d/c Out patient follow up with GI clinic as needed Recall as needed. Thank you. Status: Resolved (4) Abnormal transaminases Assessment & Plan: Improving off alcohol Status: Acute
--- NOTE | 2017-08-01 10:29 | CP.PCM.PN ---
Subjective - Date & Time of Evaluation Date of Evaluation: 08/01/17 Time of Evaluation: 07:00 - Subjective Subjective: PGY2- Progress Note for Dr. Ryan Patient seen and examined at bedside and in no acute distress. Patient says he feels better than yesterday. Patient denies anymore episodes of nausea or vomiting. Patient denies any diarrhea or constipation. Patient denies headache, chest pain, abdominal pain. Objective - Vital Signs/Intake and Output Vital Signs (last 24 hours): Temp Pulse Resp BP Pulse Ox 98.4 F 73 20 139/94 H 96 08/01/17 07:00 08/01/17 09:24 08/01/17 07:00 08/01/17 09:24 08/01/17 07:00 - Medications Medications: Current Medications Folic Acid (Folic Acid) 1 mg PO DAILY [facility] Last Admin: 08/01/17 09:25 Dose: 1 mg Gabapentin (Neurontin) 300 mg PO BID [facility] Last Admin: 08/01/17 09:12 Dose: 300 mg Potassium Chloride (Potassium Chloride 20 Meq/100 Ml) 20 meq in 100 mls @ 50 mls/hr IVPB ONCE ONE Stop: 08/01/17 10:52 Last Admin: 08/01/17 09:13 Dose: 50 mls/hr Potassium Chloride (Potassium Chloride 20 Meq/100 Ml) 20 meq in 100 mls @ 50 mls/hr IVPB ONCE ONE Stop: 08/01/17 13:44 Lorazepam (Ativan) 1 mg IVP Q4H PRN PRN Reason: Symptoms of alcohol withdrawl Lorazepam (Ativan) 1 mg IVP Q6H [facility] PRN Reason: Taper Stop: 08/04/17 11:59 Last Admin: 08/01/17 05:43 Dose: 1 mg Metoprolol Tartrate (Lopressor) 25 mg PO BIDBS [facility] Last Admin: 08/01/17 09:24 Dose: 25 mg Multivitamins (Hexavitamin) 1 tab PO DAILY [facility] Last Admin: 08/01/17 09:25 Dose: 1 tab Ondansetron HCl (Zofran Inj) 4 mg IVP Q6 PRN PRN Reason: Nausea/Vomiting Last Admin: 07/31/17 12:30 Dose: 4 mg Pantoprazole Sodium (Protonix Ec Tab) 40 mg PO DAILY [facility] Pneumococcal Polyvalent Vaccine (Pneumovax 23 Vaccine) 0.5 ml IM .ONCE ONE Stop: 08/03/17 14:01 Trazodone HCl (Desyrel) 100 mg PO HS [facility] Last Admin: 07/31/17 21:15 Dose: 100 mg - Labs Labs: 08/01/17 06:21 08/01/17 06:21 PT 10.9 SECONDS (9.7-12.2) 07/31/17 00:44 INR 1.0 07/31/17 00:44 APTT 31 SECONDS (21-34) 07/31/17 00:44 - Constitutional Appears: Non-toxic, No Acute Distress - Head Exam Head Exam: ATRAUMATIC, NORMAL INSPECTION, NORMOCEPHALIC - Eye Exam Eye Exam: EOMI, Normal appearance - ENT Exam ENT Exam: Mucous Membranes Dry - Respiratory Exam Respiratory Exam: Clear to Ausculation Bilateral, NORMAL BREATHING PATTERN. absent: Rales, Rhonchi, Wheezes, Respiratory Distress, Stridor - Cardiovascular Exam Cardiovascular Exam: REGULAR RHYTHM, RRR, +S1, +S2 - GI/Abdominal Exam GI & Abdominal Exam: Soft, Normal Bowel Sounds. absent: Tenderness - Extremities Exam Extremities Exam: Full ROM, Normal Inspection. absent: Pedal Edema, Tenderness - Back Exam Back Exam: NORMAL INSPECTION - Neurological Exam Neurological Exam: Alert, Awake, Oriented x3 - Psychiatric Exam Psychiatric exam: Depressed, Flat Affect - Skin Skin Exam: Intact, Normal Color, Warm Assessment and Plan - Assessment and Plan (Free Text) Assessment: 1) Alcohol Abuse Alcohol Withdrawal Assessment/Plan * Psychiatry (Dr. Martinez) on board-->help appreciated * CIWA protocol * Ativan 2mg IVP q6 linnea * Ativan 1mg q2prn * LR 125cc/hr with banana bag supplemented * Alcohol Serum 265 * Neurotonin 300mg PO BID * Trazodone 100mg PO HS 2) Transaminitis Assessment/Plan * GI (Dr. Potts) on board-->help appreciated * Mild blood tinged emesis likely due to recurrent wretching and bilious vomiting, gastritis, MWT, doubt bleeding ulcer or portal hypertension. Bleeding appears to be self limited and has stopped. IV Protonix q12h. * Monitor CBC. * Will defer EGD at this time in absence of hemodynamically significant bleeding or drop in H/H. Observe. * Abdominal US ordered * CT abdomen/pelvis IV only (07/31/17): no acute findings related to/accounting for clinical presentation; Liver: hepatic steatosis. No focal masses. No intrahepatic bile duct dilatation or perihepatic ascites * Hepatitis panel: negative * Downtrending * Ativan 2mg IVP q6 linnea * Ativan 1mg q2prn 3) Hypokalemia Assessment/Plan * Replete 4) Suspect GI Bleed Assessment/Plan * protonix 40mg IV Q12H * Monitor H/H * GI consulted, Dr. Singleton,help appreciated * No plans for GI intervention at this time, continue protonix for two as an outpatient and follow up with GI 5) Prophylaxis * SCDs * Protonix 40mg q12h * NPO * VTE contraindication suspected GI bleed Dispo: Patient medically stable, will be transferred to detox under Dr. Martinez's service
[2017-08-01] MEDS: Pantoprazole 40 mg EC Tab PO SCH (11:14)
[2017-08-01 12:20] LABS: HEPATITIS B SURFACE AG Negative (NEGATIVE)
[2017-08-01 12:25] LABS: HEPATITIS B CORE AB NEGATIVE (NEGATIVE)
[2017-08-01 12:38] LABS: HEPATITIS C ANTIBODY NEGATIVE (NEGATIVE)
--- NOTE | 2017-08-01 14:54 | PCM.PYCHPN ---
Psychiatric Progress Note - Psychiatric Progress Note Patient seen today, length of contact: 15 min Patient Chief Complaint: "Poor sleep" Problems Identified/Issues Discussed: he is now transferred to detox floor - as he is medically cleared The pt is seen, chart reviewed, case discussed with staff. Support and psychoeducation given, CBT and [facility] used briefly No new symptoms reported, improving slowly and needs more time No SEs from medications, risks discussed. After care discussed Medication Change: Yes (detox changes daily) Medical Record Reviewed: Yes Mental Status Examination - Cognitive Function Orientation: Person, Place, Situation, Time Memory: Impaired Attention: Poor Concentration: Poor Association: WNL Fund of Knowledge: Poor - Mood Mood: Anxious - Affect Affect: Constricted - Speech Speech: Appropriate - Formal Thought Process Formal Thought Process: No Impairment - Suicidal Ideation Suicidal Ideation: No - Homicidal Ideation Homicidal Ideation: No Goal/Treatment Plan - Goal/Treatment Plan Need for Continued Stay: Discharge may exacerbated symptoms, Severe functional impairment, Other Progress Toward Problem(s) and Goals/Treatment Plan: Taper with Ativan Trazodone for insomnia Gabapentin for augmentation if needed As needed medications All risks, benefits and alternatives of the meds discussed, and the pt agreed and understood. Supportive therapy and psychoeducation [place] for abstinence Encourage MAT Refer to rehab or IOP, and self-help groups Smoking cessation with [facility] Nicotine patch if needed
--- NOTE | 2017-08-01 22:38 | CARD ---
APPROVED REPORT EKG Measurement Heart [id number] <Conclusion> Normal sinus rhythm Normal ECG
[2017-08-02 07:09] LABS: BASO % 0.4 % (0.0-2.0); EOS % 12.2 % (0.0-4.0); HEMOGLOBIN 14.7 g/dL (12.0-18.0); LYMPH # 2.3 K/uL (1.0-4.3); LYMPH % 28.5 % (20.0-40.0); MEAN CELL VOLUME 85.5 fL (80.0-94.0); MEAN CORPUSCULAR HEMOGLOBIN 29.2 pg (27.0-31.0); MEAN CORPUSCULAR HGB CONC 34.2 g/dL (33.0-37.0); MEAN PLATELET VOLUME 8.8 fL (7.2-11.7); MONO # 0.8 K/uL (0.0-0.8); MONO % 9.8 % (0.0-10.0); NEUT # 3.9 K/uL (1.8-7.0); NEUT % 49.1 % (50.0-75.0); NRBC % 0.1 % (0.0-2.0); RBC 5.03 Mil/uL (4.40-5.90)
[2017-08-02 07:36] LABS: ALB/GLOB RATIO 1.5 (1.0-2.1); ALBUMIN 4.1 g/dL (3.5-5.0); ALT/SGPT 101 U/L (21-72); AST/SGOT 107 U/L (17-59); BLOOD UREA NITROGEN 14 mg/dL (9-20); CALCIUM 9.2 mg/dl (8.6-10.4); GFR AFRICAN-AMERICAN > 60; GFR NON-AFRICAN AMERICAN > 60
[2017-08-02] MEDS: Pantoprazole 40 mg EC Tab PO SCH (09:25)
[2017-08-02] MEDS: Multiple Vitamins Tab PO SCH (09:25)
--- NOTE | 2017-08-02 10:22 | PCM.PYCHPN ---
Psychiatric Progress Note - Psychiatric Progress Note Patient seen today, length of contact: 15 min Patient Chief Complaint: "Nausea" Problems Identified/Issues Discussed: The pt is seen, chart reviewed, case discussed with staff. Online sack filler used The pt is compliant with medications and reports no side-effects. Symptoms are improving but needs more time to stabilize. After care discussed, support and psychoeducation given. Medication Change: Yes (detox changes daily) Medical Record Reviewed: Yes Mental Status Examination - Cognitive Function Orientation: Person, Place, Situation, Time Memory: Impaired Attention: Poor Concentration: Poor Association: WNL Fund of Knowledge: Poor - Mood Mood: Anxious - Affect Affect: Constricted - Speech Speech: Appropriate - Formal Thought Process Formal Thought Process: No Impairment - Suicidal Ideation Suicidal Ideation: No - Homicidal Ideation Homicidal Ideation: No Goal/Treatment Plan - Goal/Treatment Plan Need for Continued Stay: Discharge may exacerbated symptoms, Severe functional impairment, Other Progress Toward Problem(s) and Goals/Treatment Plan: Taper with Ativan Trazodone for insomnia Gabapentin for augmentation if needed As needed medications All risks, benefits and alternatives of the meds discussed, and the pt agreed and understood. Supportive therapy and psychoeducation [place] for abstinence Encourage MAT Refer to rehab or IOP, and self-help groups Smoking cessation with [place] Nicotine patch if needed Estimated Date of D/C: 08/03/17
[2017-08-02 14:09] VITALS: RESP 18
--- NOTE | 2017-08-02 22:45 | CP.PCM.PCO ---
Physician Communication Note - Physician Communication Note Physician Communication Note: Please see above
[2017-08-03 04:48] VITALS: TEMP 98.2
[2017-08-03 07:19] LABS: BASO # 0.1 K/uL (0.0-0.2); BASO % 0.7 % (0.0-2.0); EOS # 0.9 K/uL (0.0-0.7); EOS % 11.2 % (0.0-4.0); HEMOGLOBIN 15.8 g/dL (12.0-18.0); LYMPH # 2.6 K/uL (1.0-4.3); LYMPH % 31.3 % (20.0-40.0); MEAN CELL VOLUME 86.2 fL (80.0-94.0); MEAN CORPUSCULAR HGB CONC 34.8 g/dL (33.0-37.0); MEAN PLATELET VOLUME 8.7 fL (7.2-11.7); MONO # 0.8 K/uL (0.0-0.8); MONO % 9.4 % (0.0-10.0); NEUT # 3.9 K/uL (1.8-7.0); NEUT % 47.4 % (50.0-75.0); NRBC % 0.2 % (0.0-2.0); RBC 5.26 Mil/uL (4.40-5.90); RED CELL DISTRIBUTION WIDTH 15.1 % (11.5-14.5); WHITE BLOOD COUNT 8.3 K/uL (4.8-10.8)
[2017-08-03 07:43] LABS: ALB/GLOB RATIO 1.5 (1.0-2.1); ALBUMIN 4.5 g/dL (3.5-5.0); ALT/SGPT 145 U/L (21-72); AST/SGOT 156 U/L (17-59); BLOOD UREA NITROGEN 13 mg/dL (9-20); CALCIUM 9.3 mg/dl (8.6-10.4); GFR AFRICAN-AMERICAN > 60; GFR NON-AFRICAN AMERICAN > 60
[2017-08-03 08:09] VITALS: BP 138/87
--- NOTE | 2017-08-03 08:21 | PCM.PYCHDC ---
Mental Status Examination - Mental Status Examination Orientation: Person, Place, Situation, Time Memory: Intact Mood: Anxious Affect: Constricted Speech: Appropriate Attention: WNL Concentration: Poor Association: WNL Fund of Knowledge: WNL Formal Thought Process: No Impairment Suicidal Ideation: No Current Homicidal Ideation?: No Discharge Summary - Discharge Note Reason for Hospitalization: Alcohol detox Laboratory Data: Abnormal Lab Results 08/03/17 08/03/17 07:04 07:04 WBC 8.3 RBC 5.26 Hgb 15.8 Hct 45.3 MCV 86.2 MCH 30.0 MCHC 34.8 RDW 15.1 H Plt Count 136 MPV 8.7 Neut % (Auto) 47.4 L Lymph % (Auto) 31.3 Barry % (Auto) 9.4 Eos % (Auto) 11.2 H Baso % (Auto) 0.7 Neut # (Auto) 3.9 Lymph # (Auto) 2.6 Barry # (Auto) 0.8 Eos # (Auto) 0.9 H Baso # (Auto) 0.1 Sodium 137 Potassium 4.1 Chloride 98 Carbon Dioxide 29 Anion Gap 15 BUN 13 Creatinine 0.9 Est GFR ( Amer) > 60 Est GFR (Non-Af Amer) > 60 Random Glucose 123 H Calcium 9.3 Phosphorus 4.2 Magnesium 1.7 Total Bilirubin 0.9 AST 156 H D ALT 145 H D Alkaline Phosphatase 102 Total Protein 7.4 Albumin 4.5 Globulin 2.9 Albumin/Globulin Ratio 1.5 Consultations:: List each consultation separately and include: 1. Reason for request. 2. Findings. 3. Follow-up Summary of Hospital Course include:: 1. Description of specific treatment plan utilized for patients during their course of treatmen. 2. Summarize the time- course for resolution of acute symptoms and/or regressed behaviors. 3. Describe issues identified and worked on during hospitalization. 4. Describe medication utilized. 5. Describe medical problems identified and treated. 6. Reassessment of suicide risk Summary of Hospital Course: The patient is seen, chart reviewed and case discussed. On admission: All my transition used for the interview. 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 He admits to having the 7 day binge for about 1 L of alcohol every day. However , he has a history of alcohol abuse for 30 years. Interestingly enough, he has never been to detox or rehabilitation in the past. He has withdrawal symptoms currently. No psych or other drug use history. Past psych history: Denies Medical history: He is admitted with GI bleed. Family psych history: Brother was also an alcoholic he states. Hospital course: The pt was admitted to medicine and transferred from there to detox floor. He is started on treatment with psychotherapy, support, psychoeducation and medications. [place] and CBT used. The pt attended groups and activities, as well as milieu therapy. All the risks and benefits of medications are discussed and the patient understood and agreed. The pt improved with the treatments provided. After care discussed with the patient. He only wanted to do AA b/c of work. He will also follow up with [facility] - Final Diagnosis (DSM 5) Condition upon Discharge: IMPROVED DSM 5: Alcohol withdrawal Alcohol use disorder, severe Disposition: HOME/ ROUTINE Follow-up Treatment Plan: Continue below medications after discharge. Follow after care plan as discussed. Use relapse prevention skills Return to ER or call 911 if suicidal, homicidal or symptoms relapse. Stay away from stress, alcohol and drugs. See primary doctor regularly and get labs. Prescriptions/Medication Reconciliation: Docusate [Colace] 100 mg PO DAILY #30 cap Metoprolol Tartrate [Lopressor] 25 mg PO BIDBS #60 tab Pantoprazole [Protonix EC Tab] 40 mg PO DAILY #30 ect Topiramate [Topamax] 50 mg PO BID #60 tab traZODone [Desyrel] 50 mg PO HS #30 tab - Smoking Cessation Smoking Cessation Medication prescribed: No - Antipsychotic Medications Pt discharged on 2 or more routine antipsychotic medications: No
[2017-08-03 08:41] VITALS: PULSE 98; O2SAT 98
[2017-08-03] MEDS: Pantoprazole 40 mg EC Tab PO SCH (09:01)
[2017-08-03] MEDS: Multiple Vitamins Tab PO SCH (09:02)
[2017-08-03] MEDS ORDERED: Pneumococcal 23-Valent Vaccine IM ONE (14:00)
== END 2017-08-03 09:30 | disposition home or self-care (01) | DRG 750 ==
LOC: C.ER 23:56 → C.9E 07-31 05:15 → C.6T 07-31 05:27 → C.7D 08-01 14:23
PROVIDERS: ADMIT Family Medicine; ATTEND Family Medicine
DX: F10.230 Alcohol dependence with withdrawal, uncomplicated (principal); E87.6 Hypokalemia; K92.0 Hematemesis; F10.220 Alcohol dependence with intoxication, uncomplicated; Y90.8 Blood alcohol level of 240 mg/100 ml or more; K29.20 Alcoholic gastritis without bleeding; K70.0 Alcoholic fatty liver; G47.00 Insomnia, unspecified; F17.210 Nicotine dependence, cigarettes, uncomplicated